=== PATIENT | male | born 1960 | race Caucasian/White ===

== ENCOUNTER 2023-07-27 11:25 | Emergency (ER) | payer BC, OTHER ==
--- NOTE | 2023-07-27 11:34 | ERPHSYRPT ---
- History of Present Illness Time Seen by Provider: 07/27/23 11:34 Source: patient, family Exam Limitations: no limitations Physician History: This is a 63-year-old white male patient who obtains his medical care primarily from the [facility] and presents to the emergency department at the direction of the [facility] after the patient underwent a telehealth consultation prior to arrival. This patient has had a sore throat for a week. Yesterday, he began to have significant difficulty swallowing with painful swallowing. The painful swallowing began yesterday. Patient has had a 30 pound weight loss over the last 6 months. He is not trying to lose weight. Patient has seen a retail parts professional at the [facility] and an upper and lower endoscopy was performed. Patient does not smoke tobacco or chew tobacco. Patient is on Eliquis. He has a history of hyperlipidemia, gout gastroesophageal reflux disease and hypertension. He has not been coughing up blood. He does not have chest pain or shortness of breath. Timing/Duration: abrupt onset Severity: mild Prearrival Treatment: no prearrival treatment Modifying Factors: Improves With: other (Swallowing worse his symptoms) Associated Symptoms: hearing loss (Chronic), sore throat, difficulty swallowing, No voice change Allergies/Adverse Reactions: No Known Drug Allergies Allergy (Verified 07/27/23 11:30) Home Medications: Allopurinol 100 mg [Zyloprim 100 mg] 1 tab PO DAILY 07/27/23 [History] Apixaban [Eliquis] 1 tab PO BID 07/27/23 [History] Cholecalciferol (Vitamin D3) [Vitamin D3] 5,000 unit PO DAILY 07/27/23 [History] Cyanocobalamin (Vitamin B-12) [Vitamin B12] 1,000 mg PO DAILY 07/27/23 [History] Folic Acid 1 mg [Folate 1 mg] 1 tab PO DAILY 07/27/23 [History] Metoprolol Succinate 25 mg Xl* [Toprol-Xl 25MG Tablets] 1 tab PO DAILY 07/27/23 [History] Omeprazole 1 cap PO DAILY 07/27/23 [History] Pravastatin Sodium 1 tab PO HS 07/27/23 [History] Sertraline HCl 50 mg [Zoloft 50 mg Tablet] 1 tab PO DAILY 07/27/23 [History] Thiamine HCl 100 mg [Vitamin B-1 100 mg] 1 tab PO DAILY 07/27/23 [History] Travel Risk - International Travel Have you traveled outside of the country in past 3 weeks: No - Coronavirus Screening Are you exhibiting any of the following symptoms?: No Close contact with a COVID-19 positive Pt in past 14-21 Days: No - Review of Systems Constitutional: No Symptoms Eyes: No Symptoms Ears, Nose, & Throat: Throat Pain, Painful Swallowing Respiratory: No Symptoms Cardiac: No Symptoms Abdominal/Gastrointestinal: No Symptoms Genitourinary Symptoms: No Symptoms Musculoskeletal: No Symptoms Skin: No Symptoms Neurological: No Symptoms Psychological: No Symptoms Endocrine: No Symptoms Hematologic/Lymphatic: No Symptoms Immunological/Allergic: No Symptoms All Other Systems: Reviewed and Negative - Past Medical History Pertinent Past Medical History: Yes - Past Surgical History Past Surgical History: Yes - Nursing Vital Signs Nursing Vital Signs: Initial Vital Signs Temperature 96.8 F 07/27/23 11:30 Pulse Rate 74 07/27/23 11:30 Respiratory Rate 18 07/27/23 11:30 Blood Pressure 121/84 07/27/23 11:30 O2 Sat by Pulse Oximetry 97 07/27/23 11:30 Pain Scale Pain Intensity 0 - Physical Exam General Appearance: no apparent distress, alert, anxiety, thin Eye Exam: bilateral eye: normal inspection, PERRL, EOMI Ear Exam: bilateral ear: auricle normal, canal normal, TM normal Nasal Exam: normal inspection Throat Exam: normal, pharynx normal, moist mucus membranes, pharynx tenderness, No voice changes Neck Exam: normal inspection, non-tender, supple, full range of motion, trachea midline, No lymphadenopathy (R), No lymphadenopathy (L) Cardiovascular/Respiratory Exam: chest non-tender, normal breath sounds, regular rate/rhythm, heart sounds normal, no respiratory distress Abdominal Exam: non-tender Neurologic Exam: alert, oriented x 3, cooperative, power engineer II-XII nml as tested, normal mood/affect, nml cerebellar function, nml station & gait, sensation nml Skin Exam: normal color, warm, dry SpO2 Interpretation: normal O2 Delivery: Room Air - Course Nursing assessment & vital signs reviewed: Yes Ordered Tests: Active Orders 24 hr Category Date Time Status NECK WO CONTRAST [CT] Stat Exams 07/27/23 12:14 Completed Lab/Rad Data: Laboratory Results 07/27/23 Range/Units 11:58 Influenza Type A Ag NEGATIVE (NEGATIVE) Influenza Type B Ag NEGATIVE (NEGATIVE) RSV (PCR) NEGATIVE (NEGATIVE) SARS-CoV-2 (PCR) NEGATIVE (NEGATIVE) Group A Strep Antibody NOT DETECTED (NEGATIVE) - Progress Progress: improved, pain not gone completely, re-examined Progress Note: 07/27/23 12:27 This is a 63-year-old white male patient who has a medical issue of low to moderate complexity. The level of complexity and the workup performed is based on review of the patient's past medical history, review of the patient's medication list, review of the patient's drug allergy list, history of present illness and physical findings on examination. Workup in this patient is obtaining viral swabs and group A strep. In addition we will do a soft tissue of the neck CT scan. 07/27/23 13:08 I interpreted the patient's laboratory data results. There is no evidence of any acute, emergent findings on the laboratory data results. CT scan of the neck/soft tissues was interpreted by the radiologist. I reviewed the impression. Impression states bilateral carotid calcifications. The remainder of the CT scan of the neck without contrast is negative. I will provide the patient with prednisone 20 mg here in the emergency department as well as 10 mL hydrocodone/acetaminophen elixir to help treat him symptoms. I will remotely send to his pharmacy additional prednisone and hydrocodone elixir as well as a Z-Humble. Patient will follow-up with the [facility] for further evaluation management. Counseled pt/family regarding: lab results, diagnosis, need for follow-up, rad results Medical Desision Making - Independent Historian Additional History obtained from: Family - Diagnostic Testing Diagnostic test were ordered, analyzed, and reviewed by me: Yes Radiological Interpretation: Reviewed by me, Teleradiologist Report - Risk of complications The pt has a mod risk of morbidity or mortality based on: Need for prescription drug management - Departure Departure Disposition: Home Clinical Impression: Pharyngitis Condition: Stable Critical Care Time: No Additional Instructions: Drink plenty of cool liquids, full liquids and soft foods as tolerated. Follow- up with the [facility] by phone tomorrow, 07/28/2023 to make a follow-up appointment there to be seen by search engine optimization consultant. Take your medications as prescribed. Prescriptions: Prednisone 10 mg [Deltasone 10 mg] 10 mg PO TID #12 tablet Hydrocodone/Acetaminophen [Hydrocodone-Acetamn 7.5-325/15] 10 ml PO Q8H PRN #120 ml MDD 30 ml PRN Reason: Cough Azithromycin 250 mg [Zithromax 250 MG TABLET] 250 mg PO ZPACK #6 tablet
[2023-07-27 12:33] LABS: Group A Strep NOT DETECTED (NEGATIVE)
[2023-07-27 12:44] LABS: INFLUENZA A NEGATIVE (NEGATIVE); INFLUENZA B NEGATIVE (NEGATIVE); RESPIRATORY SYNCTIAL VIRUS NEGATIVE (NEGATIVE); SARS-CoV-2 Xpert Express NEGATIVE (NEGATIVE)
[2023-07-27 12:46] VITALS: RESP 18; TEMP 96.8; O2SAT 97
--- NOTE | 2023-07-27 12:53 | XRAY ---
Indication: Sore throat. Difficulty swallowing 6 months. Multiple contiguous images obtained through the neck without contrast. Comparison: None Bilateral dental amalgams produces beam artifact. Supra and infraglottic airway widely patent. Normal epiglottis. Parotid and submandibular glands are bilaterally symmetric. Thyroid gland homogeneous. A few small centimeter/subcentimeter cervical and submandibular nodes, none pathologically enlarged. Moderate left and mild right carotid calcifications. Visualized osseous structures intact. Visualized paranasal sinuses and mastoid air cells are clear. Base of brain and lung apices unremarkable. Impression: Bilateral carotid calcifications. Remaining CT neck without contrast exam is negative.
[2023-07-27 13:11] VITALS: PULSE 74
[2023-07-27] MEDS ORDERED: HYDROCODONE-ACETAMIN 2.5-108/5 ML SOLUTION ONE (13:20)
[2023-07-27] MEDS ORDERED: DELTASONE 20 MG ONE (13:20)
[2023-07-27] MEDS: DELTASONE 20 MG PO ONE (13:23)
[2023-07-27] MEDS: HYDROCODONE-ACETAMIN 2.5-108/5 ML SOLUTION PO STA (13:23)
[2023-07-27 13:30] VITALS: BP 118/90
== END 2023-07-27 13:44 | disposition home or self-care (01) ==
LOC: ED 11:25
DX: J02.9 Acute pharyngitis, unspecified (principal); R13.10 Dysphagia, unspecified; R63.4 Abnormal weight loss; E78.5 Hyperlipidemia, unspecified; I10 Essential (primary) hypertension; Z79.52 Long term (current) use of systemic steroids; Z79.891 Long term (current) use of opiate analgesic; Z79.01 Long term (current) use of anticoagulants; Z79.899 Other long term (current) drug therapy
CPT/HCPCS: 0241U; 70490; 87651; 99283; A9270-GY